=== PATIENT | female | born 1980 | race Hispanic/Latino ===

== ENCOUNTER → 2024-04-30 | Day surgery (SDC) | payer OTHER ==
[~2024-04-30] MED LIST: LOSARTAN POTASS25 MG PO; MULTI-VITAMIN1 EACH PO; OMEPRAZOLE40 MG PO
[2024-04-30] MEDS: LACTATED RINGER'S 1,000 ML ONE (12:05)
[2024-04-30 14:32] VITALS: TEMP 97.4
[2024-04-30 15:00] VITALS: BP 115/78; PULSE 64; RESP 16; O2SAT 99
== END | disposition home or self-care (01) ==
LOC: OR 13:00
PROVIDERS: ATTEND Internal Medicine Gastroenterology
DX: K29.50 Unspecified chronic gastritis without bleeding (principal); Z86.0101 Personal history of adenomatous and serrated colon polyps; K31.7 Polyp of stomach and duodenum; K20.90 Esophagitis, unspecified without bleeding; K21.9 Gastro-esophageal reflux disease without esophagitis; R19.5 Other fecal abnormalities; K64.8 Other hemorrhoids; Z71.3 Dietary counseling and surveillance; I10 Essential (primary) hypertension; Z71.89 Other specified counseling; E66.01 Morbid (severe) obesity due to excess calories; Z01.810 Encounter for preprocedural cardiovascular examination; Z79.899 Other long term (current) drug therapy; Z68.30 Body mass index [BMI] 30.0-30.9, adult; Z86.16 Personal history of COVID-19; Z80.0 Family history of malignant neoplasm of digestive organs
CPT/HCPCS: 43239; 43251; 45378; 93005; J2470; J7121